=== PATIENT | female | born 1985 | race Caucasian/White ===

== ENCOUNTER 2022-11-01 08:17 | Emergency (ER) | payer MEDICAID ==
[~2022-11-01] VITALS: Ht 172.7 cm; Wt 59.0 kg
[2022-11-01 08:17] VITALS: BP_SYST 99
--- NOTE | 2022-11-01 08:17 | NUR ---
BROUGHT IN BY SAMSON SANTANA AND PLACED IN HALLWAY FOR OK TO BOOK. PT DENIES ANY INJURY OR TRAUMA. PT STATES THAT SHE HAS SEIZURES, LAST SEIZURE WAS IN DECEMBER. HAS NOT BEEN TAKING HER KEPPRA FOR LAST 4 MONTHS. PT STATES SHE RECENTLY HAD A COLLAPSED LUNG ON LEFT SIDE. NO DIFF BREATHING, DENIES SOB
--- NOTE | 2022-11-01 08:19 | NUR ---
DR PAUL AT BEDSIDE FOR EVALUATION
--- NOTE | 2022-11-01 08:41 | NUR ---
TAKEN TO RADIOLOGY FOR TESTING. WITH PT.
--- NOTE | 2022-11-01 09:05 | NUR ---
Patient given written and verbal discharge instructions and verbalizes understanding. ER MD discussed with patient the results and treatment provided. Patient in stable condition. ID arm band removed. Rx of NONE given. Patient educated on pain management and to follow up with PMD. Pain Scale 0/10. Opportunity for questions provided and answered. Medication side effect fact sheet provided.
== END 2022-11-01 09:05 ==
LOC: SED 08:17
DX: Z02.89 Encounter for other administrative examinations (principal); Z88.0 Allergy status to penicillin; Z79.899 Other long term (current) drug therapy
CPT/HCPCS: 71046-TC; 99283